=== PATIENT | female | born 1930 | race Caucasian/White ===

== ENCOUNTER → 2016-06-12 | Outpatient (CLI) | payer OTHER ==
[~2016-06-12] MED LIST: CARB1SOL OPB; CHOLTAB3 PO; CYAN500T PO; LATA0.009 OPB; LOSA1TAB PO; LOVA20TA4 PO; MAGN1TAB19 PO; MELA5CAP PO; METO-217 PO; MISCCAP80 PO; MULT-506 PO
== END | disposition home or self-care (01) ==
LOC: C.PAPS 12:08
PROVIDERS: ATTEND Obstetrics & Gynecology
DX: C54.1 Malignant neoplasm of endometrium (principal)

== ENCOUNTER → 2016-09-19 | Outpatient (CLI) | payer OTHER ==
--- NOTE | 2016-09-19 16:52 | MAMMOGRAPHY REPORT ---
BILATERAL DIGITAL SCREENING MAMMOGRAM WITH CAD: 09/19/2016 CLINICAL HISTORY: Routine screening. Patient has no complaints. TECHNIQUE: Current study was also evaluated with a Computer Aided Detection (CAD) system. Bilatera l CC and MLO views were obtained. COMPARISON: Comparison is made to exams dated: 09/19/2015 mammogram, 08/08/2014 mammogram, 08/05/2013 mammogram, 08/04/2012 mammogram, 08/02/2011 mammogram, and 07/31/2010 mammogram - [facility] enter. BREAST COMPOSITION: There are scattered areas of fibroglandular density in both breasts. FINDINGS: No suspicious masses, calcifications, or areas of architectural distortion are noted in e ither breast. There has been no significant interval change compared to prior exams. Bilateral josie gn-appearing calcifications are not significantly changed. IMPRESSION: ACR BI-RADS CATEGORY 2: BENIGN There is no mammographic evidence of malignancy. A 1 year screening mammogram is recommended. The p atient will receive written notification of the results. Approximately 10% of breast cancers are not detected with mammography. A negative mammographic repor t should not delay biopsy if a clinically suggestive mass is present. Brenda Osborn M.D. /:09/19/2016 15:07:39 Armored Cable Machine Operator: Donna Nava, [facility] letter sent: Normal 1/2 BI-RADS Code: ACR BI-RADS Category 2: Benign
== END | disposition home or self-care (01) ==
LOC: C.MAMM 08:59
PROVIDERS: ATTEND Obstetrics & Gynecology
DX: Z12.31 Encounter for screening mammogram for malignant neoplasm of breast (principal)

== ENCOUNTER → 2016-12-04 | Outpatient (CLI) | payer OTHER ==
[2015-12-05 13:19] VITALS: BP 121/70; PULSE 65
[2016-12-04 13:18] VITALS: BP 132/78; PULSE 72; TEMP 37.1; O2SAT 96
--- NOTE | 2016-12-04 16:55 | Radiation Oncology Follow-Up ---
Radiation Oncology Follow-Up Date of Visit Dec 04, 2016. Reason For Visit Annual follow-up Radiation Completion Date 05/04/14 Diagnosis (1) Endometrial ca Status: Resolved Onset Date: 12/10/2013 Histology Subtype: adenocarcinoma Permanent Comment: Abdominal discomfort CT scan revealing a right-sided uterine fibroid and widened endometrial stripe Status post endometrial biopsy 12/10/2013 revealing endometrial adenocarcinoma, FIGO grade 1 Status post laparoscopic hysterectomy 01/11/2014 FIGO grade 1 Stage pT2 bNX Status post completion of radiation therapy 05/04/2014 received 4500 cGy external beam radiation with IMRT followed by 1200 cGy utilizing HDR therapy in 3 treatments Last Edited By: Katiuska Colindres on Nov 23, 2014 16:40 History of Present Illness Ms. Ibrahim presented to her PCP in October of this year with complaint of abdominal pain. This was thought to be due to diverticulitis and a CT scan of the abdomen was ordered and performed. The CT scan however noted that the endometrium was thickened and a 2.9 x 2.7 cm ovoid low attenuation lesion was noted in the uterine fundus. And because of this an pelvic ultrasound was suggested. The pelvic ultrasound was performed and the uterus measured 6.4 x 2.8 x 3.5 cm. A 1.5 x 1.4 x 1.4 cm posterior right sided fibroid was appreciated. The endometrial canal was filled with simple fluid and had an abnormal contour anteriorly where it has a sharp angle and where the fluid-filled canal extends into the myometrium. The ovaries were not visualized. Upon further discussion the patient did report one episode of postmenopausal bleeding but this occurred many years ago while she was in her 50s. The patient reported a long-standing history of stress urinary incontinence and reported being told she had a "rash" in her vagina which she was given a cream. She used this initially but has since stopped. The patient was under additional stress due to health issues with her including significant memory loss and recent diagnosis of C. difficile and strokes. The patient was seen by Dr. Shannen Dumont. She noted a endometrial biopsy that was performed on 12/10/2013. 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 49432. Her pelvic exam was basically unremarkable. She discussed with the patient the treatment options. She discussed a total hysterectomy, bilateral salpingo-oophorectomy, node dissection and surgical staging that would depend however on the surgical findings. She also discussed the possible requirement of adjuvant treatment that could consist of chemotherapy or radiation therapy depending on the final surgical findings. The patient ultimately agreed to proceed with a laparoscopic hysterectomy. This procedure was performed on 2013. The frozen section evaluation was positive for malignancy. FIGO grade 1. The adenocarcinoma invaded less than 50% of the depth of the myometrium. The tumor grossly abutted the lower uterine segment but did not grossly invade into the lower uterine segment. With these findings no lymph node sampling was required or performed. The final path however while confirming an endometrioid adenocarcinoma, FIGO grade 1, deep invasion was identified. The depth of invasion was 11 mm into a myometrial thickness of 14 mm. In addition there was invasion with an adenocarcinoma extending into the stroma of the endocervix. There was no lymphovascular invasion noted. The right and left ovary and right and left fallopian tubes were unremarkable. The staging was therefore a pT2 pNx. with the additional information of deep myometrial invasion and lower uterine segment and cervical involvement Dr. Dumont discussed with the patient the role of adjuvant therapy. She felt the patient would be a good candidate for vaginal cuff brachytherapy. The patient's case was also discussed at the multidisciplinary tumor board they suggested the following options 1) completion lymphadenectomy with radiation; 2) pelvic radiation with vaginal cuff brachytherapy and 3) vaginal brachytherapy alone. Also recommended was a colonoscopy based on a CT interpretation of a possible lesion in the descending colon. The colonoscopy was performed on 03/08/2014. This revealed non thrombosed internal hemorrhoids. Many small mouth diverticula were found in the sigmoid colon, descending colon and transverse colon. No malignancy or polyps were appreciated. The patient has recovered very well from her surgery. We were asked to see the patient in referral to discuss with her the radiation treatment options that include both external radiation and vaginal brachytherapy. Interim History She's been doing well over this past year. She denies any vaginal discharge or bleeding. She had no change in urination or bowel habits. She was diagnosed with lichen sclerosis. The belly dump driver has prescribed a topical steroid. She has itching associated. She is concerned about using the steroid. She has not used it on a regular basis. She is seeing the belly dump driver every 4 months. She 's had no signs of recurrence. It was noted that the vagina is shorter. She would like to stop using the dilator if possible. She is happy to report her primary care physician has been following her white blood cell count. Her last laboratory study of the white count was within normal limits. Allergies Coded Allergies: Amoxicillin (Verified Allergy, Mild, GI SYMPTOMS, 12/05/15) Aspirin (Verified Allergy, Mild, 06/30/09) Adhesives (Unverified Allergy, Unknown, rash, 03/10/14) Cephalexin (Unverified Allergy, Unknown, GI SYMPTOMS, 03/10/14) Lisinopril (Unverified Allergy, Unknown, general malaise, 03/10/14) Erythromycin (Verified Adverse Reaction, Severe, SEVERE NAUSEA AND VOMITTING, 06/30/09) Home Medications Scheduled Carboxymethylcellulose Sodium (Refresh), 1 DROP OPB DIRECTED Cyanocobalamin (Vitamin B-12), 500 MCG PO DAILY Ergocalciferol (Vitamin D), 400 INTER.UNIT PO DAILY Latanoprost 0.005% Oph (Xalatan 0.005% Oph), 1 DROP OPB HS Losartan Potassium (Cozaar), 12.5 MG PO DAILY Lovastatin (Mevacor), 20 MG PO DAILY Magnesium Oxide (Mg Supplement (Magnesium Oxide), 1 TAB PO DAILY Metoprolol Succinate (Toprol Xl), 50 MG PO DAILY Multivitamin (Multivitamin), 1 TAB PO DAILY Probiotic Product (Probiotic), 1 CAP PO DAILY Review of Systems Gastrointestinal: Symptoms: WNL GI Comments: and loose stools for about 1 week, something I ate " Oral: Symptoms: No Problems Respiratory: Symptoms: WNL, SOB With Exertion Urinary: Symptoms: WNL Comments: nocturia times 1 , stress incontinence Skin: Symptoms: No Problems Physical Exam Vital Signs Date Time Temp Pulse Resp B/P (MAP) Pulse Ox O2 Delivery O2 Flow Rate FiO2 12/04/16 13:18 37.1 72 16 132/78 96 Pain: Side: Bilateral Pain Location: None Patient Pain Scale: 0 - 10 Initial Pain Intensity: 0.0 Fatigue: None General Appearance: no apparent distress Eyes: normal inspection, EOMI ENT: normal ENT inspection, hearing grossly normal Neck: no adenopathy, thyroid normal Respiratory/Chest: lungs clear, no respiratory distress, no accessory muscle use Cardiovascular: regular rate, rhythm, no gallop, no murmur Abdomen: non tender, soft, no organomegaly Genitourinary - Female: Normal external genitalia. Atrophic vaginitis is noted with the associated lichen sclerosis. There are no vaginal masses or discharge. Mild telangiectasia at the apex. No visible or palpable lesions of the vagina. Carbuncle of the urethra. No tenderness or masses are noted on bimanual examination. Anal / Rectum: No rectal masses and no rectal bleeding. Normal sphincter tone. Extremities: no pedal edema Neurologic/Psychiatric: no motor/sensory deficits, alert, normal mood/affect Skin: warm/dry Lymphatic: no adenopathy Assessment & Plan Plan: Continue regular follow-up with gynecology and her primary care physician. I've given her a handout on the lichen sclerosis. Information from the [facility] and aaron Corado. We discussed using [id number] medications to help with vaginal dryness and itching. She could try Vagisil. Also discussed vitamin E oil. 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 We discussed discontinuation of the vaginal dilator. We asked to return to our office in 1 year. She may call if she has the questions or concerns in the interim. Total Time In Follow-Up I spent 25 minutes speaking with the patient performing examination. I spent 15 minutes reviewing information in completing this note. Copy To Winston Alonzo MD; Jena Young M.D.
== END | disposition home or self-care (01) ==
LOC: C.ONC 12:57
PROVIDERS: ATTEND Physician Assistant Medical
DX: Z08 Encounter for follow-up examination after completed treatment for malignant neoplasm (principal); Z92.3 Personal history of irradiation; Z85.89 Personal history of malignant neoplasm of other organs and systems

== ENCOUNTER → 2016-12-19 | Outpatient (CLI) | payer OTHER ==
[~2016-12-19] MED LIST changes: -MELA5CAP PO
== END | disposition home or self-care (01) ==
LOC: C.PAPS 08:14
PROVIDERS: ATTEND Obstetrics & Gynecology
DX: Z12.4 Encounter for screening for malignant neoplasm of cervix (principal)

== ENCOUNTER → 2017-03-18 | Outpatient (CLI) | payer OTHER | END | disposition home or self-care (01) | LOC: C.PAPS 13:52 | PROVIDERS: ATTEND Obstetrics & Gynecology | DX: C54.1 Malignant neoplasm of endometrium (principal) ==

== ENCOUNTER → 2017-06-19 | Outpatient (CLI) | payer OTHER ==
--- NOTE | 2017-06-19 14:44 | DIAGNOSTIC IMAGING REPORT ---
LUMBAR SPINE MIN 4 VIEWS HISTORY: Pain LOWER BACK PAIN COMPARISON: 11/17/2014 FINDINGS: Moderate compression deformity superior endplate L1 unchanged from the prior study. No subluxation. Moderate degenerative disc change from T12 through L3 considered stable. Mild degenerative anterior osteophytic reaction from all vertebral endplates. Moderate degenerative change posterior elements. Several calcifications upper aspect left kidney unchanged. IMPRESSION: 1. Moderate degenerative change stable from the prior study. 2. Mild compression deformity superior endplate L1 considerable old. 3. No evidence for new or interval process. The above report was generated using voice recognition software. It may contain grammatical, syntax or spelling errors. Electronically signed by: Dann Owen M.D. 06/19/2017 2:43 PM Dictated Date/Time: 06/19/2017 2:40 PM
== END | disposition home or self-care (01) ==
LOC: C.RDSM 14:32
PROVIDERS: ATTEND Physician Assistant
DX: M51.16 Intervertebral disc disorders with radiculopathy, lumbar region (principal)

== ENCOUNTER → 2017-09-01 | Outpatient (CLI) | payer OTHER | END | disposition home or self-care (01) | LOC: C.PAPS 14:17 | PROVIDERS: ATTEND Obstetrics & Gynecology | DX: C54.1 Malignant neoplasm of endometrium (principal); R87.610 Atypical squamous cells of undetermined significance on cytologic smear of cervix (ASC-US) ==

== ENCOUNTER → 2017-09-22 | Outpatient (CLI) | payer OTHER ==
--- NOTE | 2017-09-23 12:45 | MAMMOGRAPHY REPORT ---
BILATERAL DIGITAL SCREENING MAMMOGRAM TOMOSYNTHESIS WITH CAD: 09/22/2017 CLINICAL HISTORY: Routine screening. Patient has no complaints. TECHNIQUE: Breast tomosynthesis in addition to standard 2D mammography was performed. Current study was also evaluated with a Computer Aided Detection (CAD) system. COMPARISON: Comparison is made to exams dated: 09/19/2016 mammogram, 09/19/2015 mammogram, 08/08/2014 m ammogram, 08/05/2013 mammogram, 08/02/2011 mammogram, and 07/31/2010 mammogram - [facility]. BREAST COMPOSITION: There are scattered areas of fibroglandular density in both breasts. FINDINGS: There are mild to moderate vascular calcifications in the breasts. A few scattered benign punctate and rim calcifications. No suspicious mass, architectural distortion or cluster of microcal cifications is seen. IMPRESSION: ACR BI-RADS CATEGORY 1: NEGATIVE There is no mammographic evidence of malignancy. A 1 year screening mammogram is recommended. The pa tient will receive written notification of the results. Approximately 10% of breast cancers are not detected with mammography. A negative mammographic report should not delay biopsy if a clinically suggestive mass is present. Kamla Redmond M.D. ay/:09/22/2017 14:37:23 Cost Recovery Technician: Donna ROONEY(Carl)(M), [facility] letter sent: Normal 1/2 BI-RADS Code: ACR BI-RADS Category 1: Negative
== END | disposition home or self-care (01) ==
LOC: C.MAMM 10:35
PROVIDERS: ATTEND Obstetrics & Gynecology
DX: Z12.31 Encounter for screening mammogram for malignant neoplasm of breast (principal)

== ENCOUNTER 2017-10-13 15:53 | Emergency (ER) | payer OTHER ==
[~2017-10-13] VITALS: Ht 172.7 cm; Wt 87.3 kg
[2017-10-13 16:02] VITALS: TEMP 36.8; Ht 172.7 cm; Wt 87.3 kg
--- NOTE | 2017-10-13 17:00 | DIAGNOSTIC IMAGING REPORT ---
CT OF THE HEAD WITHOUT CONTRAST CLINICAL HISTORY: Fall with head injury. COMPARISON STUDY: No previous studies for comparison. CT DOSE: 1035.50 mGy.cm TECHNIQUE: Helical axial images of the head were obtained without IV contrast. Automated exposure control was utilized for the study. A dose lowering technique was utilized adhering to the principles of ALARA. FINDINGS: No acute intracranial hemorrhage, midline shift or mass effect is present. Ventricular system is unremarkable. There is a cavum septum pellucidum. The basilar cisterns are patent. There are no extra-axial collections. There is moderate atrophy. White matter hypodensity suggests small vessel disease. A small posterior scalp contusion is noted with no calvarial fracture. IMPRESSION: 1. No acute intracranial findings. 2. Small posterior scalp contusion with no calvarial fracture. Electronically signed by: Toi Vargas M.D. 10/13/2017 4:59 PM Dictated Date/Time: 10/13/2017 4:55 PM
--- NOTE | 2017-10-13 17:04 | DIAGNOSTIC IMAGING REPORT ---
CT OF THE CERVICAL SPINE WITHOUT CONTRAST CLINICAL HISTORY: Fall. COMPARISON STUDY: No previous studies for comparison. TECHNIQUE: Helical axial images of the cervical spine were obtained without IV contrast. Sagittal and coronal reconstructions were viewed. A dose lowering technique was utilized adhering to the principles of ALARA. FINDINGS: Alignment of the cervical spine is anatomic. Craniocervical junction is intact. There is no acute cervical spine fracture. Multilevel degenerative disc disease is noted with multiple disc protrusions/extrusions which are suboptimally assessed by CT. These are most pronounced at the C4-C5 level. Craniocervical junction is intact. There is no prevertebral edema. IMPRESSION: No acute cervical spine fracture or subluxation. Electronically signed by: Toi Vargas M.D. 10/13/2017 5:03 PM Dictated Date/Time: 10/13/2017 4:59 PM
[2017-10-13] MEDS ORDERED: LATA0.5S OP (17:36)
[2017-10-13] MEDS ORDERED: CHOL1000 PO (17:36)
--- NOTE | 2017-10-13 17:36 | DIAGNOSTIC IMAGING REPORT ---
PELVIS 1 OR 2 VIEW ROUTINE, SACRUM COCCYX MIN 2 VIEWS HISTORY: 87 years-old Female fall acute pelvic and sacral pain status post fall COMPARISON: Lumbar spine radiographs 06/19/2017 TECHNIQUE: 2 views of the pelvis with 3 views of the sacrum and coccyx. FINDINGS: PELVIS: The bones appear moderately demineralized. 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 The changes of the SI joints and pubic symphysis are also seen. Degenerative changes of the lower lumbar spine. Phleboliths are noted within the pelvis. There is no acute fracture or dislocation identified. SACRUM/COCCYX: Bones appear moderately demineralized. No acute fracture or subluxation identified. Atherosclerosis of the aorta. IMPRESSION: 1. Moderately demineralized appearance of the bones without acute fracture or dislocation. 2. Degenerative changes as above. The above report was generated using voice recognition software. It may contain grammatical, syntax or spelling errors. Electronically signed by: Kin Coelho M.D. 10/13/2017 5:35 PM Dictated Date/Time: 10/13/2017 5:32 PM
[2017-10-13 18:29] VITALS: BP 165/89; PULSE 78; O2SAT 95
--- NOTE | 2017-10-13 22:22 | EMERGENCY ROOM VISIT NOTE ---
History Report prepared by Ema: Darwin Wick Under the Supervision of: Juliana PaizO. First contact with patient: 15:57 Chief Complaint: FALL Stated Complaint: FALL/ HEAD PAIN/DIZZY History of Present Illness The patient is an 87 year old female who presents to the Emergency Room with complaints of constant buttock pain following a fall occurring today. The patient states that she has neuropathy in her feet, which caused her feet to become numb as she was walking to her car today. She notes that she attempted to reach her car to gain her footing, but fell backwards onto her buttocks. She reports that she occasionally gets numbness in her feet when she walks. She also complains of head pain and shoulder pain beginning ten days ago. She rates her pain as a 4/10. She denies any neck pain and back pain. The patient states that she is not on any blood thinners. Source of History: patient Onset: today Position: other (buttocks) Symptom Intensity: 4/10 Timing: constant Associated Symptoms: + headache, + numbness, No neck pain, No back pain Note: The patient also complains of shoulder pain. Review of Systems See HPI for pertinent positives & negatives. A total of 10 systems reviewed and were otherwise negative. Past Medical & Surgical Medical Problems: (1) Endometrial ca (2) Glaucoma (3) Hyperlipidemia (4) Hypertension (5) Hypothyroidism (6) Migraine headache (7) Neuropathy (8) Osteoporosis (9) Renal calculi Family History No pertinent family history stated. Social History Smoking Status: Never Smoker Drug Use: none Marital Status: Housing Status: lives alone Occupation Status: retired Current/Historical Medications Scheduled Carboxymethylcellulose Sodium (Refresh), 1 DROP OPB DIRECTED Cholecalciferol (Vitamin D3), 1 TAB PO DAILY Cyanocobalamin (Vitamin B-12), 500 MCG PO DAILY Latanoprost (Xalatan 0.005% Oph Adrienne), 1 DROPS OP HS Losartan Potassium (Cozaar), 12.5 MG PO DAILY Lovastatin (Mevacor), 20 MG PO DAILY Magnesium Oxide (Mg Supplement (Magnesium Oxide), 1 TAB PO DAILY Metoprolol Succinate (Toprol Xl), 50 MG PO DAILY Multivitamin (Multivitamin), 1 TAB PO DAILY Probiotic Product (Probiotic), 1 CAP PO DAILY Allergies Coded Allergies: Amoxicillin (Verified Allergy, Mild, GI SYMPTOMS, 5/21/18) Aspirin (Verified Allergy, Mild, 10/13/17) Adhesives (Unverified Allergy, Unknown, rash, 10/13/17) Cephalexin (Unverified Allergy, Unknown, GI SYMPTOMS, 10/13/17) Lisinopril (Unverified Allergy, Unknown, general malaise, 10/13/17) Erythromycin (Verified Adverse Reaction, Severe, SEVERE NAUSEA AND VOMITTING, 10/13/17) Physical Exam Vital Signs Date Time Temp Pulse Resp B/P (MAP) Pulse Ox O2 Delivery O2 Flow Rate FiO2 10/13/17 18:29 78 18 165/89 95 10/13/17 16:02 36.8 70 18 186/117 98 Room Air Physical Exam GENERAL: alert, well appearing, well nourished, no distress, non-toxic HEAD: normal cephalic, contusion to posterior occiput EYE EXAM: normal conjunctiva, PERRL and EOM's grossly intact OROPHARYNX: no exudate, no erythema, lips, buccal mucosa, and tongue normal and mucous membranes are moist NECK: supple, no nuchal rigidity, no adenopathy, non-tender CHEST: stable to compression anteriorly and posteriorly LUNGS: clear to auscultation. Normal chest wall mechanics HEART: no murmurs, S1 normal and S2 normal ABDOMEN: abdomen soft, non-tender, normo-active bowel sounds, no masses, no rebound or guarding. PELVIS: stable to compression anteriorly and posteriorly, tenderness to coccyx. BACK: Back is symmetrical on inspection and there is no deformity, no midline tenderness, no CVA tenderness. UPPER EXTREMITIES: full active and passive range of motion of all joints without tenderness to palpation with the exception of mild tenderness to the left shoulder which is been present in his old from previous fall LOWER EXTREMITIES: full active and passive range of motion of all joints without tenderness to palpation. NEURO EXAM: Normal sensorium, cranial nerves II-XII grossly intact, normal speech, no gross weakness of arms, no gross weakness of legs. GCS: 15. Medical Decision & Procedures ER Provider Diagnostic Interpretation: Radiology results as stated below per my review and the radiologist's interpretation: CT OF THE CERVICAL SPINE WITHOUT CONTRAST FINDINGS: Alignment of the cervical spine is anatomic. Craniocervical junction is intact. There is no acute cervical spine fracture. Multilevel degenerative disc disease is noted with multiple disc protrusions/extrusions which are suboptimally assessed by CT. These are most pronounced at the C4-C5 level. Craniocervical junction is intact. There is no prevertebral edema. IMPRESSION: No acute cervical spine fracture or subluxation. Electronically signed by: Toi Vargas M.D. 10/13/2017 5:03 PM PELVIS 1 OR 2 VIEW ROUTINE, SACRUM COCCYX MIN 2 VIEWS FINDINGS: PELVIS: The bones appear moderately demineralized. 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 The changes of the SI joints and pubic symphysis are also seen. Degenerative changes of the lower lumbar spine. Phleboliths are noted within the pelvis. There is no acute fracture or dislocation identified. SACRUM/COCCYX: Bones appear moderately demineralized. No acute fracture or subluxation identified. Atherosclerosis of the aorta. IMPRESSION: 1. Moderately demineralized appearance of the bones without acute fracture or dislocation. 2. Degenerative changes as above. The above report was generated using voice recognition software. It may contain grammatical, syntax or spelling errors. Electronically signed by: Kin Coelho M.D. 10/13/2017 5:[address] OF THE HEAD WITHOUT CONTRAST FINDINGS: No acute intracranial hemorrhage, midline shift or mass effect is present. Ventricular system is unremarkable. There is a cavum septum pellucidum. The basilar cisterns are patent. There are no extra-axial collections. There is moderate atrophy. White matter hypodensity suggests small vessel disease. A small posterior scalp contusion is noted with no calvarial fracture. IMPRESSION: 1. No acute intracranial findings. 2. Small posterior scalp contusion with no calvarial fracture. Electronically signed by: Toi Vargas M.D. 10/13/2017 4:59 PM PELVIS 1 OR 2 VIEW ROUTINE, SACRUM COCCYX MIN 2 VIEWS FINDINGS: PELVIS: The bones appear moderately demineralized. 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 The changes of the SI joints and pubic symphysis are also seen. Degenerative changes of the lower lumbar spine. Phleboliths are noted within the pelvis. There is no acute fracture or dislocation identified. SACRUM/COCCYX: Bones appear moderately demineralized. No acute fracture or subluxation identified. Atherosclerosis of the aorta. IMPRESSION: 1. Moderately demineralized appearance of the bones without acute fracture or dislocation. 2. Degenerative changes as above. The above report was generated using voice recognition software. It may contain grammatical, syntax or spelling errors. Electronically signed by: Kin Coelho M.D. 10/13/2017 5:35 PM ED Course ED COURSE: Vital signs were reviewed and showed that the patient was hypertensive. The patients medical record was reviewed The above diagnostic studies were performed and reviewed. ED treatments and interventions as stated above. 1600: The patient was evaluated in room A9. A complete history and physical examination was performed. 1831: Upon reevaluation, the patient is stable. I discussed my findings with the patient and she understands and agrees with the treatment plan. Based on the patients age, coexisting illnesses, exam and lab findings the decision to treat as an outpatient was made. The patient remained stable while under my care. The patient appeared well at the time of discharge. Medical Decision Differential diagnoses include major intracranial, cervical, spinal, thoracic, abdominal, pelvic and neurologic injury. Fracture, contusion, sprain, strain, laceration, abrasions included as well. Patient is an 87-year-old female that presents the ER for mechanical fall. She notes that intermittently she gets pain and numbness in her feet from her neuropathy. If she has not closed by something she notes she will fall. She fell backwards. No loss consciousness. She does not take any blood thinners. She does complain of a headache. CT head and neck were negative. She also complains of tailbone pain. X-rays of the coccyx and pelvis were unremarkable. Patient was updated at bedside. She declined any pain meds. She was discharged follow-up with PCP as an outpatient. Discussed with Pt concerning signs and symptoms to watch out for. Pt was instructed to follow up with their PCP and discussed with the patient their option to return to the ED at anytime for persistent or worsening symptoms. The appropriate anticipatory guidance and out-patient management, including indications for return to the emergency department, were explained at length to the patient and understood. Blood Pressure Screening Patient's blood pressure: Elevated blood pressure Blood pressure disposition: Elevated BP felt to be situational Impression Primary Impression: Contusion of coccyx Additional Impression: Contusion of head Scribe Attestation The scribe's documentation has been prepared under my direction and personally reviewed by me in its entirety. I confirm that the note above accurately reflects all work, treatment, procedures, and medical decision making performed by me. Departure Information Dispostion Home / Self-Care Referrals Brennen Lott M.D. (PCP) Forms HOME CARE DOCUMENTATION FORM, IMPORTANT VISIT INFORMATION Patient Instructions My [facility] Additional Instructions Please follow up with your primary care doctor with in the next 24 hours. Any worsening of your symptoms, please return to the ED immediately. This includes any fevers greater than 100.4, worsening pain, chest pain, shortness breath, persistent nausea, vomiting, unable to eat or drink, or any other concerning signs or symptoms from your standpoint. Please take Tylenol or Motrin as needed for pain. Problem Qualifiers Primary Impression: Contusion of coccyx Encounter type: initial encounter Qualified Codes: S30.0XXA - Contusion of lower back and pelvis, initial encounter Additional Impression: Contusion of head Encounter type: initial encounter Contusion of head detail: scalp Qualified Codes: S00.03XA - Contusion of scalp, initial encounter
== END 2017-10-13 18:31 | disposition home or self-care (01) ==
LOC: EDBD 15:53 → C.EDA 15:54
DX: S30.0XXA Contusion of lower back and pelvis, initial encounter (principal); S00.03XA Contusion of scalp, initial encounter; W18.39XA Other fall on same level, initial encounter; H40.9 Unspecified glaucoma; E78.5 Hyperlipidemia, unspecified; I10 Essential (primary) hypertension; M81.0 Age-related osteoporosis without current pathological fracture; Z85.42 Personal history of malignant neoplasm of other parts of uterus; Z87.442 Personal history of urinary calculi; Z79.899 Other long term (current) drug therapy; Z88.1 Allergy status to other antibiotic agents; Z88.6 Allergy status to analgesic agent; Z88.8 Allergy status to other drugs, medicaments and biological substances; Z91.048 Other nonmedicinal substance allergy status